=== PATIENT | male | born 1955 | race Caucasian/White ===

== ENCOUNTER 2017-05-25 07:12 | Day surgery (SDC) | payer OTHER ==
[2017-05-21 09:58] LABS: BASOPHILS # (AUTO) 0.3 K/uL (0.00-0.22); BASOPHILS % (AUTO) 4.2 % (0.0-2.0); EOSINOPHILS # (AUTO) 0.1 K/uL (0-0.4); EOSINOPHILS % (AUTO) 1.5 % (0.0-4.0); HEMATOCRIT 48.4 % (36-52); HEMOGLOBIN 15.9 g/dL (12.0-18.0); LYMPHOCYTES # (AUTO) 2.1 K/uL (2.0-11.5); MEAN CORPUSCULAR HEMOGLOBIN 30 pg (27-31); MEAN CORPUSCULAR HGB CONC 33 g/dL (33-37); MEAN CORPUSCULAR VOLUME 92 fL (80-94); MONOCYTES # (AUTO) 0.7 K/uL (0.8-1.0); MONOCYTES % (AUTO) 9.6 % (1.7-9.3); NEUTROPHILS # (AUTO) 4.2 K/uL (1.8-7.7); NEUTROPHILS % (AUTO) 56.7 % (42.2-75.2); PLATELET COUNT (AUTO) 217 K/uL (140-450); RED BLOOD CELL COUNT(AUTO) 5.25 MIL/uL (4.20-6.10); RED CELL DISTRIBUTION WIDTH 12.7 % (11.6-13.7); WHITE BLOOD COUNT (AUTO) 7.4 K/uL (4.8-10.8)
[2017-05-21 10:18] LABS: ALBUMIN 3.9 g/dL (3.4-5.0); ANION GAP 8.3 (8-16); CARBON DIOXIDE 30.4 mmol/L (21-32); POTASSIUM 4.7 mmol/L (3.5-5.1); TOTAL BILIRUBIN 0.6 mg/dL (0.0-1.0)
[~2017-05-25] VITALS: Ht 185.4 cm; Wt 89.8 kg
[2017-05-25] MEDS ORDERED: PRAV10TA4 PO (08:28)
[2017-05-25] MEDS ORDERED: PROPOFOL 200 MG/20 ML VIAL IV ONE (09:51)
[2017-05-25] MEDS ORDERED: KETOROLAC 60 MG/2 ML VIAL IM ONE (09:51)
[2017-05-25] MEDS ORDERED: DEXAMETHASONE 4 MG/ML VIAL IVP ONE (09:51)
[2017-05-25] MEDS ORDERED: SEVOFLURANE 250 ML BTL INH ONE (09:51)
[2017-05-25] MEDS ORDERED: ONDANSETRON 4 MG/2 ML VIAL IVP ONE (09:51)
[2017-05-25] MEDS ORDERED: BUPIVACAINE-MPF 0.25% 30 ML VIAL INJ ONE (10:00)
[2017-05-25] MEDS ORDERED: MIDAZOLAM 2 MG/2 ML VIAL ONE (10:06)
[2017-05-25] MEDS ORDERED: fentaNYL 0.05 MG/ML VIAL ONE (10:06)
[2017-05-25] MEDS ORDERED: MORPHINE SULFATE 4 MG/ML SYR ONE (10:07)
[2017-05-25] MEDS ORDERED: METOCLOPRAMIDE 10 MG/2 ML INJ VIAL IVP PRN (10:35)
[2017-05-25] MEDS ORDERED: MORPHINE SULFATE 4 MG/ML SYR IVP PRN ×3 (10:35→11:30)
[2017-05-25] MEDS ORDERED: MIDAZOLAM 2 MG/2 ML VIAL IV ONE (10:35)
[2017-05-25] MEDS ORDERED: MORPHINE SULFATE 2 MG/ML SYR IVP PRN (10:35)
[2017-05-25] MEDS ORDERED: NACL 0.9% 1,000 ML IV SCH (11:26)
[2017-05-25] MEDS ORDERED: MORPHINE SULFATE 4 MG/ML SYR IV PRN (11:30)
[2017-05-25] MEDS ORDERED: HYDROmorphone 1 MG/ML AMP IVP PRN (11:30)
[2017-05-25] MEDS ORDERED: HYDROcodone/APAP 5/325 MG 1 TAB TAB PO PRN (11:30)
[2017-05-25] MEDS ORDERED: ACETAMINOPHEN 325 MG TAB PO PRN (11:30)
[2017-05-25] MEDS ORDERED: ONDANSETRON 4 MG/2 ML VIAL IV PRN (11:30)
== END 2017-05-25 13:10 | disposition home or self-care (01) ==
LOC: MDS 07:12 → MMU 07:13 → MDS 13:10
PROVIDERS: ATTEND Surgery
DX: K42.9 Umbilical hernia without obstruction or gangrene (principal); E78.5 Hyperlipidemia, unspecified; Z72.0 Tobacco use
CPT/HCPCS: 36415; 49585; 71010; 80053; 85025; 88302; 93005; C1781; J0690; J1100; J1885; J2250; J2270; J2405; J2704; J3010; J3490; J7060; J7120